=== PATIENT | female | born 1980 | race Caucasian/White ===

== ENCOUNTER 2017-09-06 13:51 | Emergency (ER) | payer OTHER, MEDICAID ==
[~2017-09-06] VITALS: Ht 157.5 cm; Wt 108.9 kg
[~2017-09-06 13:51] MED LIST: FLINTSTONES M200 MCG; MEDROLDOSEPACK PO; NOHOMEMEDICATIONS; PROAIR HFA8.5 GM IH; TRINATE TABLET1 TAB PO; ZPAK PO
[2017-09-06 14:15] LABS: URINE BILIRUBIN NEGATIVE (Negative); URINE BLOOD 3+ (Negative); URINE CLARITY CLEAR; URINE COLOR YELLOW; URINE GLUCOSE-RANDOM NEGATIVE (Negative); URINE KETONES NEGATIVE (Negative); URINE LEUKOCYTES-REFLEX TRACE (Negative); URINE PROTEIN 2+ (Negative); URINE SPECIFIC GRAVITY 1.025 (1.005-1.030)
[2017-09-06 14:16] LABS: URINE NITRITE-REFLEX POSITIVE (Negative)
[2017-09-06 14:18] LABS: HEMATOCRIT 41.6 % (37.0-47.0); HEMOGLOBIN 14.5 gm/dL (12.0-15.0); MCH 33.3 pg (26.0-34.0); MCHC 34.9 g/dL (28.0-37.0); MCV 95.4 fL (80.0-100.0); NUCLEATED RBCS 0 /100WBC; PLATELET COUNT* 228 thou/uL (150-400); RBC 4.36 mil/uL (4.20-5.00); RDW-CV 12.6 % (10.5-14.5); WBC 3.4 thou/uL (4.0-11.0)
[2017-09-06 14:20] LABS: CASTS None Seen /LPF (None Seen); CRYSTALS None Seen /LPF (None Seen); MUCUS None Seen strn/LPF (None Seen); SQUAMOUS 4-10 Moderate /LPF (0-3); URINE RBC >20 Many /HPF (0-2); URINE WBC-REFLEX 0-5 Rare /HPF (0-5)
[2017-09-06 14:25] LABS: CALCIUM 8.4 mg/dL (8.5-10.1); POTASSIUM 3.7 mmol/L (3.5-5.1)
[2017-09-06 14:31] LABS: ALBUMIN 3.9 g/dL (3.4-5.0); TOTAL BILIRUBIN 0.3 mg/dL (<0.1-1.0); TOTAL PROTEIN 7.2 g/dL (6.4-8.2)
[2017-09-06 15:18] LABS: ABSOLUTE EOSINOPHILS 0.5 thou/uL (0.0-0.7); ABSOLUTE LYMPHOCYTES 1.8 thou/uL (0.8-5.3); ABSOLUTE MONOCYTES 0.3 thou/uL (0.0-1.2); ABSOLUTE NEUTROPHILS 0.7 thou/uL (1.6-8.1)
[2017-09-06 15:19] LABS: PLATELET ESTIMATE ADEQUATE
[2017-09-06] MEDS ORDERED: BACTRIM DS TAB1 EACH PO (15:32)
[2017-09-06] MEDS ORDERED: LOPERAMIDE 2 MG2 M1 PO (15:35)
[2017-09-06 15:53] VITALS: BP 130/79
== END 2017-09-06 15:55 | disposition home or self-care (01) ==
LOC: M.ERS 13:51
PROVIDERS: Physician Assistant
DX: N39.0 Urinary tract infection, site not specified (principal); K76.0 Fatty (change of) liver, not elsewhere classified; D72.819 Decreased white blood cell count, unspecified; F17.210 Nicotine dependence, cigarettes, uncomplicated; Z90.49 Acquired absence of other specified parts of digestive tract; Z88.5 Allergy status to narcotic agent

== ENCOUNTER 2018-01-19 15:55 | Emergency (ER) | payer OTHER, MEDICAID ==
[~2018-01-19] VITALS: Ht 160 cm; Wt 106.6 kg
[~2018-01-19 15:55] MED LIST changes: +BACTRIM DS TAB1 EACH PO; +LOPERAMIDE 2 MG2 M1 PO
[2018-01-19] MEDS ORDERED: KEFLEX500 M1 PO (17:06)
[2018-01-19] MEDS ORDERED: NYAMYC15 GM TOP (17:06)
[2018-01-19 17:10] VITALS: BP 138/92
== END 2018-01-19 17:18 | disposition home or self-care (01) ==
LOC: M.ERS 15:55
DX: B37.2 Candidiasis of skin and nail (principal); L08.89 Other specified local infections of the skin and subcutaneous tissue; Z88.5 Allergy status to narcotic agent; Z90.49 Acquired absence of other specified parts of digestive tract

== ENCOUNTER 2018-01-25 14:04 | Emergency (ER) | payer OTHER, MEDICAID ==
[~2018-01-25] VITALS: Ht 160 cm; Wt 106.6 kg
[~2018-01-25 14:04] MED LIST changes: +KEFLEX500 M1 PO; +NYAMYC15 GM TOP
[2018-01-25 14:33] LABS: URINE BILIRUBIN NEGATIVE (Negative); URINE BLOOD NEGATIVE (Negative); URINE CLARITY CLEAR; URINE COLOR YELLOW; URINE GLUCOSE-RANDOM NEGATIVE (Negative); URINE KETONES NEGATIVE (Negative); URINE LEUKOCYTES 2+ (Negative); URINE NITRITE NEGATIVE (Negative); URINE PROTEIN NEGATIVE (Negative); URINE SPECIFIC GRAVITY 1.015 (1.005-1.030); URINE UROBILINOGEN 0.2 E.U./dl (0.2-1.0)
[2018-01-25 14:40] LABS: SQUAMOUS >10 Many /LPF (0-3); URINE WBC 6-15 Few /HPF (0-5)
[2018-01-25 14:41] LABS: CASTS None Seen /LPF (None Seen); CRYSTALS None Seen /LPF (None Seen); MUCUS 0-3 Light strn/LPF (None Seen); URINE RBC 0-2 Rare /HPF (0-2)
[2018-01-25] MEDS ORDERED: DIFLUCAN150 M1 PO (15:01)
[2018-01-25] MEDS ORDERED: CIPRO500 MG PO (15:02)
[2018-01-25] MEDS ORDERED: [UNRECOGNIZED DRUG - OTHER] TOP (16:05)
[2018-01-25 16:13] VITALS: BP 142/88
== END 2018-01-25 16:15 | disposition home or self-care (01) ==
LOC: M.ERS 14:04
PROVIDERS: Nurse Practitioner Family
DX: N39.0 Urinary tract infection, site not specified (principal); B37.2 Candidiasis of skin and nail; Z88.5 Allergy status to narcotic agent; Z90.49 Acquired absence of other specified parts of digestive tract

== ENCOUNTER 2019-01-22 00:58 | Emergency (ER) | payer OTHER, MEDICAID ==
[~2019-01-22] VITALS: Ht 157.5 cm; Wt 115.7 kg
[~2019-01-22 00:58] MED LIST changes: +CIPRO500 MG PO; +DIFLUCAN150 M1 PO; +[UNRECOGNIZED DRUG - OTHER] TOP
[2019-01-22 03:10] VITALS: BP 134/82
== END 2019-01-22 03:10 | disposition home or self-care (01) ==
LOC: M.ERS 00:58
DX: J02.9 Acute pharyngitis, unspecified (principal); Z88.5 Allergy status to narcotic agent; Z90.49 Acquired absence of other specified parts of digestive tract; Z98.51 Tubal ligation status